=== PATIENT | female | born 1975 | race Hispanic/Latino ===

== ENCOUNTER 2018-08-30 16:15 | Emergency (ER) | payer SELFPAY ==
[~2018-08-30] VITALS: Ht 160 cm; Wt 84.1 kg
[~2018-08-30 16:15] MED LIST: NAPROSYN500 MG OR; NO HOME MEDS
[2018-08-30] MEDS ORDERED: TESSALON PERLE100 MG PO (16:38)
[2018-08-30] MEDS ORDERED: ALBUTEROL SUL0.083 % IN (17:28)
[2018-08-30] MEDS ORDERED: PREDNISONE20 MG PO (17:28)
[2018-08-30 17:35] VITALS: BP 137/81
== END 2018-08-30 17:35 | disposition home or self-care (01) | DRG 204 ==
LOC: ED 16:15
DX: R05 Cough (principal)